=== PATIENT | male | born 1945 | race Caucasian/White ===

== ENCOUNTER 2016-09-15 09:58 | Emergency (ER) | payer MEDICARE, BC ==
[~2016-09-15 09:58] MED LIST: LISINOPRIL PO
[2016-09-15] MEDS ORDERED: CLOPIDOGREL75 MG (10:08)
[2016-09-15] MEDS ORDERED: NEURONTIN (10:09)
[2016-09-15] MEDS ORDERED: CRESTOR (10:09)
== END 2016-09-15 10:33 | disposition home or self-care (01) ==
LOC: SED 09:58
DX: S05.01XA Injury of conjunctiva and corneal abrasion without foreign body, right eye, initial encounter (principal); I10 Essential (primary) hypertension; Z86.73 Personal history of transient ischemic attack (TIA), and cerebral infarction without residual deficits; H10.9 Unspecified conjunctivitis; W22.8XXA Striking against or struck by other objects, initial encounter
CPT/HCPCS: 99283